=== PATIENT | male | born 1970 | race Caucasian/White ===

== ENCOUNTER 2019-08-13 10:33 | Outpatient (CLI) | payer OTHER | END 2019-08-13 11:00 | disposition home or self-care (01) | LOC: TOM 10:33 | DX: R51 Headache (principal) ==

== ENCOUNTER 2024-05-11 10:04 | Emergency (ER) | payer OTHER ==
[~2024-05-11] VITALS: Ht 177.8 cm; Wt 113.4 kg
[2024-05-11] MEDS ORDERED: AVAPRO300 MG (10:29)
[2024-05-11] MEDS ORDERED: INDERAL XL80 MG (10:29)
[2024-05-11] MEDS ORDERED: IPRATROPIUM/ALBUTEROL SULFATE 3 ML AMPUL.NEB IH ONE (11:00)
[2024-05-11] MEDS ORDERED: 0.9 % SODIUM CHLORIDE 500 ML IV ONE (11:00)
[2024-05-11 11:39] LABS: HEMATOCRIT 43.7 % (39.0-48.0); HEMOGLOBIN 15.2 g/dL (13-16.00); MEAN CELL VOLUME 88.9 fL (80.0-100.00); MEAN CORPUSCULAR HEMOGLOBIN 30.9 pg (27.00-32.0); MEAN CORPUSCULAR HGB CONC 34.7 g/dl (32.0-36.0); PLATELET COUNT 327 K/uL (150-450); RED BLOOD COUNT 4.91 M/uL (4.00-6.00); RED CELL DISTRIBUTION WIDTH 14.3 % (11.5-14.5)
[2024-05-11 12:55] LABS: CALCIUM 8.5 mg/dL (8.5-10.1); CREATININE SERUM 0.68 mg/dL (0.70-1.30); GFR 120.63; POTASSIUM 3.26 mEq/L (3.5-5.1)
[2024-05-11] MEDS ORDERED: FLONASE ALLERG9.9 ML NASAL (13:37)
[2024-05-11] MEDS ORDERED: AUGMENTIN XR 11 EACH PO (13:37)
[2024-05-11] MEDS ORDERED: ALBUTEROL1.25 MG/3 IH (13:37)
[2024-05-11] MEDS ORDERED: BENZONATATE100 MG PO (13:37)
[2024-05-11] MEDS ORDERED: AMOX1TAB5 PO (13:38)
[2024-05-11 13:45] VITALS: BP 120/80; O2SAT 100
== END 2024-05-11 13:45 | disposition home or self-care (01) ==
LOC: ER 10:06
PROVIDERS: General Practice
DX: B34.9 Viral infection, unspecified (principal); J98.01 Acute bronchospasm; J00 Acute nasopharyngitis [common cold]; Z20.822 Contact with and (suspected) exposure to COVID-19; I10 Essential (primary) hypertension

== ENCOUNTER 2024-08-20 09:09 | Outpatient (CLI) | payer OTHER ==
[~2024-08-20 09:09] MED LIST: ALBUTEROL1.25 MG/3 IH; AMOX1TAB5 PO; AUGMENTIN XR 11 EACH PO; AVAPRO300 MG; BENZONATATE100 MG PO; FLONASE ALLERG9.9 ML NASAL; INDERAL XL80 MG
== END 2024-08-20 09:18 | disposition home or self-care (01) ==
LOC: RAD 09:09
PROVIDERS: ATTEND Podiatrist Foot & Ankle Surgery
DX: M20.12 Hallux valgus (acquired), left foot (principal); M20.11 Hallux valgus (acquired), right foot

== ENCOUNTER 2024-09-30 10:47 | Outpatient (CLI) | payer OTHER | END 2024-09-30 11:02 | disposition home or self-care (01) | LOC: MRI 10:47 | PROVIDERS: ATTEND Podiatrist Foot & Ankle Surgery | DX: M76.61 Achilles tendinitis, right leg (principal); M76.62 Achilles tendinitis, left leg | CPT/HCPCS: 73721 ==